=== PATIENT | male | born 1970 | race Caucasian/White ===

== ENCOUNTER 2024-05-19 09:34 | Emergency (ER) | payer BC, SELFPAY ==
[2024-05-19 10:13] VITALS: BP 164/99; PULSE 81; RESP 16; TEMP 36.9; O2SAT 98; BMI 29.8
--- NOTE | 2024-05-19 10:23 | XR_ITS ---
Examination: CT lumbar spine, without contrast. 2-D sagittal reconstructions. 2-D coronal reconstructions. 3-D reconstructions. Date and time of exam:May 19, 2024 10:40 AM INDICATIONS: Right lower back pain with swelling in the lower back beginning larger the last 5 months CTDI: vol (mGy):23.1 DLP: (mGycm):712 Technique: Multiple 1.25 mm axial sections of the lumbar spine without intravenous contrast have been obtained. 2-D sagittal and coronal reconstructions have been obtained. 3-D reconstructions have been obtained. Low dose protocols were performed. One or more of the following dose reduction techniques were used; automated exposure control, adjustment of the mA and/or KV according to patient size, use of iterative reconstruction technique. Findings: Moderate osteopenia No lumbar vertebral body fracture No significant lumbar disc narrowing No spondylolisthesis Lumbar pedicles laminae, transverse and posterior spinous processes intact L5-S1 3 mm central left paracentral disc bulge mildly displacing the left S1 nerve root More cephalad levels unremarkable Partial visualization bilateral 1 to 3 mm renal calculi IMPRESSION: No lumbar fracture L5-S1 3 mm central left paracentral disc bulge mildly displacing the left S1 nerve root Partial visualization bilateral renal calculi Consider ultrasound soft tissue of any palpable lower back mass
[2024-05-19] MEDS: KETOROLAC INJ 30 MG/ML VIAL IM (11:05)
--- NOTE | 2024-05-19 12:07 | EDNOTE_ITS ---
ED Back Injury Pain RME/HPI General Chief Complaint: Back Pain/Injury Stated Complaint: KNOT ON LOWER BACK GROWING AND PINCHING NERVE Time Seen by Provider: 05/19/24 10:23 Arrival date/time: 05/19/24 09:34 53-year-old male presents emergency department today complains of lower back pain worse with movement patient reports that he feels a knot in his left lower back. Patient ports no saddle anesthesia no loss of bowel or bladder no fever nausea vomiting Limitations: no limitations Related Data Previous Rx's ?Medication ?Instructions ?Recorded cyclobenzaprine 10 mg tablet 10 mg PO TID PRN muscle spasm 10 05/19/24 days #30 tab-caps hydrocodone 5 mg-acetaminophen 325 1 tab PO BID PRN pain #10 tabs 05/19/24 mg tablet ibuprofen 800 mg tablet 800 mg PO TID PRN pain #30 tabs 05/19/24 Allergies Allergy/AdvReac Type Severity Reaction Status Date / Time allopurinol Allergy Mild Dizziness Verified 05/19/24 09:36 Review of Systems Review of Systems Systems Reviewed: All systems reviewed, normal except as documented Constitutional Constitutional: Reports system reviewed and no additional complaints, except as documented, Denies fever(s) and Denies headache(s) Eyes Eyes: Reports system reviewed and no additional complaints, except as documented and Denies blurry vision ENT Ears, Nose, Mouth, and Throat: Reports system reviewed and no additional complaints, except as documented, Denies headache(s), Denies nasal congestion and Denies nasal discharge Cardiovascular Cardiovascular: Reports system reviewed and no additional complaints, except as documented, Denies chest pain and Denies dyspnea Respiratory Respiratory: Reports system reviewed and no additional complaints, except as documented, Denies chest congestion, Denies cough and Denies dyspnea Gastrointestinal Gastrointestinal: Reports system reviewed and no additional complaints, except as documented and Denies abdominal pain Musculoskeletal Musculoskeletal: Reports system reviewed and no additional complaints, except as documented, Reports abnormal gait and Reports back pain Integumentary/Breasts Skin/Breast: Reports system reviewed and no additional complaints, except as documented and Denies rash Neurologic Neurologic: Reports system reviewed and no additional complaints, except as documented, Reports as per HPI, Reports abnormal gait and Denies headache(s) Past Medical History Past Medical History NEUROLOGIC: Negative Neurological Disorders CARDIAC: Negative Cardiac Disorders Social History SMOKING STATUS: Never smoker ED Exam General Limitations: Present no limitations General appearance: Present alert and in no apparent distress Head Head exam: Present atraumatic Eye Eye exam: Present normal appearance, PERRL and EOMI ENT ENT exam: Present normal exam, normal oropharynx and mucous membranes moist Neck Neck exam: Present normal inspection, full ROM and trachea midline Chest Chest inspection: Present normal inspection and symmetric chest wall rise Respiratory Respiratory exam: Present normal lung sounds bilaterally Cardiovascular Cardiovascular exam: Present regular rate, normal rhythm and normal heart sounds Abdominal Exam Abdominal exam: Present soft and normal bowel sounds; Absent distention, tenderness, guarding, rebound or rigidity Extremities Exam Extremities exam: Present normal inspection and full ROM Back Exam Back exam: Present normal inspection, full ROM, tenderness, muscle spasm and paraspinal tenderness; Absent CVA tenderness (R), CVA tenderness (L) or vertebral tenderness Neurological Exam Neurological exam: Present alert, oriented X3 and CN II-XII intact Psychiatric Psychiatric exam: Present normal affect and normal mood Skin Skin exam: Present warm, dry, intact and normal color Course Quality Measures none Orders Category Date Time Status CT lumbar spine wo con Stat Exams 05/19/24 10:23 Completed Ketorolac Inj [Toradol Inj] Med 05/19/24 10:23 Discontinued 30 mg IM X1 ONE Vital Signs Vital signs: Vital Signs Temperature 98.5 F 05/19/24 10:13 Pulse Rate 81 05/19/24 10:13 Respiratory Rate 16 05/19/24 10:13 Blood Pressure 164/99 H 05/19/24 10:13 Pulse Oximetry (%) 98 05/19/24 10:13 Oxygen Delivery Method Room Air 05/19/24 10:13 O2 saturation 98% r/a wnl Back Pain / Injury MDM Narrative MDM Narrative:: 53-year-old male presents emergency department today complains of lower back pain worse with movement patient reports that he feels a knot in his left lower back. Patient reports no saddle anesthesia no loss of bowel or bladder no fever nausea vomiting On exam patient well-appearing patient does not appear ill or toxic in no acute distress Imaging obtained no acute emergent findings noted patient does have bulging disc consistent with patient's pain On exam patient has a not in his lower back which appears to be muscular in nature Patient moves his back freely walks with steady gait no abnormal neurological findings Explained to the patient if pain persist he may need to follow-up with PCP for MRI For emergent concerns patient instructed to return immediately Patient data External records reviewed:: [facility] previous records Clinical information provided by:: patient Social determinants that could affect healthcare access:: none Patient has the following chronic illnesses:: None How is presenting disease/condition affected by chronic disease/condition?: no chronic disease Evaluation data The following diagnostics were reviewed and interpreted by me:: radiology exam(s) Lab and/or radiology exams considered but not ordered:: Radiology obtain Interpretation Summary: Reviewed by me Medications / Prescriptions Medications or Prescriptions considered but not ordered:: Given Medication administrations:: Medication Administration History Discontinued Medications Ketorolac Tromethamine (Ketorolac Inj 30 Mg/Ml Vial) 30 mg IM X1 ONE Stop: 05/19/24 10:24 Last Admin: 05/19/24 11:05 Dose: 30 mg Documented By: [facility] Given Consultations Consultation(s) initiated? (list below): No Diagnosis Differential diagnosis back pain/injury: lumbar radiculopathy, strain of lumbar region and thoracic back pain Most likely diagnosis given after review of the tests above:: Back pain Admission Indicated Admission indicated?: not indicated Admission Request Was there a request for admission?: No Disposition Plan Disposition Plan: Discharge Discharge Attestation Discharge Attestation: The patient and all family members were given an opportunity to ask questions and understood the discharge instructions. Discharge instructions specifically effects, indications for sooner follow up or return to the emergency department, and the expected course of current diagnosis. Patient condition: Stable Discharge Plan Plan Patient Disposition: HOME (Self Care) Disposition Comment: Stable Prescriptions/Referrals Prescriptions/Med Rec: New cyclobenzaprine 10 mg tablet 10 mg PO TID PRN (Reason: muscle spasm) 10 Days Qty: 30 0RF ibuprofen 800 mg tablet 800 mg PO TID PRN (Reason: pain) Qty: 30 0RF hydrocodone-acetaminophen 5-325 mg tablet 1 tab PO BID MDD 10 PRN (Reason: pain) Qty: 10 0RF Referrals: No Primary/Family,Physician [Primary Care Provider] - In 1 week Problem List Clinical Impression: Bulging lumbar disc Patient/Caregiver Discharge Instructions Education Materials: Back Safety: Lifting Additional Instructions: Please follow up with your primary care doctor in the next 24-48hrs for any worsening symptoms return here immediately Print Language: Indonesian Stand Alone Forms: Linda Award Info., Work/School Release, Patient Portal Info Letter PA/ENVIRONMENTAL PROPERTY ASSESSOR Supervising Physician PA/ENVIRONMENTAL PROPERTY ASSESSOR Supervising Physician: Dr mauro
== END 2024-05-19 12:13 | disposition home or self-care (01) ==
PROVIDERS: Emergency Provider Emergency Medicine
DX: M51.370 Other intervertebral disc degeneration, lumbosacral region with discogenic back pain only (principal)
CPT/HCPCS: 72131; 96372; 99284; J1885